=== PATIENT | male | born 1985 | race African-American/Black ===

== ENCOUNTER 2018-07-09 19:49 | Emergency (ER) | payer BC ==
[~2018-07-09] VITALS: Ht 193 cm; Wt 99.8 kg
[2018-07-09 20:17] VITALS: BP 136/85
[2018-07-09] MEDS ORDERED: BENZOIN COMPOUND TINCT 60 ML BOTTLE ONE (20:41)
--- NOTE | 2018-07-09 20:50 | NUR ---
SEEN AND EXAMINED BY SIMON LECHUGA.
--- NOTE | 2018-07-09 21:23 | NUR ---
STERI STRIP APPLIED BY SIMON LECHUGA, BASEBALL SPLING APPLIED.
== END 2018-07-09 21:26 | disposition home or self-care (01) ==
LOC: ER 19:55
DX: S61.216A Laceration without foreign body of right little finger without damage to nail, initial encounter (principal); W25.XXXA Contact with sharp glass, initial encounter; Y93.G1 Activity, food preparation and clean up; Y92.89 Other specified places as the place of occurrence of the external cause; Y99.8 Other external cause status
CPT/HCPCS: 29130; 99283; A6403